=== PATIENT | female | born 1945 | race Caucasian/White ===

== ENCOUNTER 2020-08-08 15:31 | Outpatient (REF) | payer MEDICARE, MEDICAID, SELFPAY ==
[2020-08-08 15:55] LABS: MANUAL DIFF FLAG NO
[2020-08-08 15:58] LABS: Basophils Percent Auto 0.6 % (0-2); Eosinophils Percent Auto 0.9 % (0-4); Hematocrit 36.1 % (37-47); Hemoglobin 11.2 g/dl (12.0-16.0); Imm Gran Abs Auto 0.01 X10*3/uL (0.00-0.03); Imm Gran Pct Auto 0.2 % (0.0-0.4); Lymphocytes Absolute Auto 1.2 X10*3/uL (1.2-4.9); Lymphocytes Percent Auto 25.8 % (20-40); Mean Corpuscular Hemoglobin 27.8 pg (27.0-33.0); Mean Corpuscular Volume 89.6 fL (80-98); Mean Platelet Volume 10.3 fL (9.4-12.3); Monocytes Absolute Auto 0.4 X10*3/uL (0.1-1.2); Monocytes Percent Auto 8.4 % (2-11); Neutrophils Percent Auto 64.1 % (45-73); Platelet Count 227 X10*3/uL (160-400); Red Blood Count 4.03 X10*6/uL (4.20-5.50); Red Cell Distribution Width 13.6 % (11.0-16.0); White Blood Count 4.6 X10*3/uL (4.8-10.8)
[2020-08-08 16:25] LABS: Anion Gap 12 (12-20); Blood Urea Nitrogen 16 mg/dL (9-16); Carbon Dioxide 30 mmol/L (22-29); Chloride 106 mmol/L (96-108); Estimated Glomerular Filt Rate > 60; Potassium 5.1 mmol/L (3.3-5.1); Sodium 143 mmol/L (135-145)
== END 2020-08-08 15:32 | disposition home or self-care (01) ==
LOC: HO.LAB 15:31
PROVIDERS: PCP Family Medicine; Visit Provider Family Medicine
DX: I10 Essential (primary) hypertension (principal); G62.9 Polyneuropathy, unspecified
CPT/HCPCS: 36415; 80051; 82565; 84520; 85025

== ENCOUNTER 2020-10-17 08:30 | Day surgery (SDC) | payer MEDICARE, MEDICAID, SELFPAY ==
--- NOTE | 2020-10-05 14:52 | ECG_ITS ---
Test Reason : PREOP Blood Pressure : / mmHG Vent. Rate : 071 BPM Atrial Rate : 071 BPM P-R Int : 142 ms QRS Dur : 078 ms QT Int : 380 ms P-R-T Axes : 047 079 037 degrees QTc Int : 412 ms Normal sinus rhythm Nonspecific ST and T wave abnormality Borderline ECG No previous ECGs available Referred By: Gary Davila Electronically Signed By:MELODIE TRAN
--- NOTE | 2020-10-07 16:45 | CONS_ITS ---
DATE OF SERVICE: 10/17/2020 HISTORY OF PRESENT ILLNESS: This is a 75-year-old white [place] female, who has been a patient of mine for a number of years. She is non-Lithuanian speaking. She has a long history of chronic anxiety disorder and tends to be noncompliant. She has a history of glaucoma, irritable bowel syndrome, which is manifested by constipation, modestly elevated cholesterol, longstanding chronic nonspecific fatigue, colon polyps, diverticulosis, GERD although that has not been a recent problem, mild hypertension, venous insufficiency, and history of some skipped beats (PACs and PVCs). In December 2019, she probably had herpes zoster, also history of hyperventilation. She presently takes following medications, Xanax which is prescribed by her psychiatrist whom she sees intermittently and metoprolol, and no other medications at the present time except her eyedrops. She now presents via telehealth with video for preoperative consultation for cataract surgery. She does have a agricultural equipment sales manager with her named Bre, who has been helpful in terms of translation over the years with Mary. 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 As far as complaints go, she complains of chronic fatigue, which has no change. She has noted lately occasionally faint feelings from time to time, lasting only a short period of time (seconds), and some headaches. Today, she feels not too much dizziness. There has been no chest pain, shortness of breath, GERD; and the bowels have been lately okay. She has been a little unsteady on her feet for a long time, and she takes Xanax from Psychiatry, which maybe a factor. She said no rash and the neuropathy is about the same, she has refused therapy. Her legs feel numbish at times as does her arms and sometimes i wonder whether or not she might be hyperventilating.she has had no falls. I was able to get her to walk around her apartment and turning and twisting and checking for orthostatics visually without any problems. Her cataract is scheduled for October 17. She is generally a poor historian. Fatigue is generally chronic. There were no other symptoms, although she does claim her legs were swollen; however, on visualization from the camera, there does not appear to be swelling, although her right knee does appear to have a little degenerative arthritic changes by looking at it. She does not appear to be out of breath in any way, and she has mammograms overdue, but she has not done it yet and she was re-advised. Her weight is 94 pounds, which is about what she has been running, and her blood pressure was 160/74, pulse is 90. She had an EKG done within the last couple of weeks and this showed no acute changes. She had lab work done in July, which revealed lytes, BUN, creatinine, CBC, all pretty much unremarkable with no acute changes. There was no evidence of the patient having any respiratory difficulty on visualization as well as by history. IMPRESSION: 1. Hypertension. 2. Chronic fatigue. 3. Irritable bowel syndrome with constipation. 4. History of glaucoma. 5. Cataract. 6. Noncompliance. 7. Anxiety disorder. 8. History of colon polyps. 9. High cholesterol. 10. Question of hyperventilation. From medical standpoint, the patient should be relatively stable for cataract surgery. I will follow her after her cataract surgeries MD DAGMAR Cox/EZEQUIEL / [id number] MTDD
[2020-10-10 13:57] VITALS: BMI 19.0
--- NOTE | 2020-10-13 07:41 | MHC.SHP ---
Pre-Procedural Eval Section A The patient is an INPATIENT: No The History & Physical has been completed within 30 days and I have reviewed it.: Yes Section B Chief Complaint: Cataract Left Eye Allergies: Allergies Allergy/AdvReac Type Severity Reaction Status Date / Time Penicillins [PENICILLINS] Allergy Unknown UNKNOWN Unverified 10/10/20 14:02 Plan Diagnosis/Plan: Unchanged I have reviewed the history and physical and performed a pertinent physical examination on my patient. No changes have occurred unless specified.
--- NOTE | 2020-10-17 10:00 | HO.ANESPROP2 ---
[facility] Past Medical History Medical History (Updated 10/10/20 @ 14:02 by Jazmine Bhatt) Anxiety Chronic fatigue COVID-19 vaccine series completed Depression Edema leg Elevated cholesterol GERD (gastroesophageal reflux disease) Glaucoma HTN (hypertension) Irritable bowel syndrome with constipation On beta lupillo at home Poor historian Surgical History Surgical History (Updated 10/10/20 @ 13:54 by Jazmine Bhatt) Hx of colonoscopy Social History Social History Are you a primary acute care physician to a significant other at home: No Do you presently have visiting nurse or other home services: No Patient Tobacco Use Status: Never used Tobacco Use of substances other than those prescribed or required for medical reasons: No Have you been hit, kicked, punched, or otherwise hurt by someone within the past year? If so, by whom?: No Advance Directives: No Advance Directives Information Provided: No Advance Directives on File: No Recently lost weight without trying: No Eating poorly because of decreased appetite: No Patient : No Meds Allergies Allergy/AdvReac Type Severity Reaction Status Date / Time Penicillins [PENICILLINS] Allergy Unknown UNKNOWN Verified 10/17/20 10:19 Active Medications: Current Medications Generic Name Dose Route Start Last Admin Trade Name Freq PRN Reason Stop Dose Admin Lactated Ringer's 500 mls @ 50 mls/hr 10/17/20 10:00 Lr IV 10/17/20 19:59 .Q10H BRAD Povidone Iodine 1 appl 10/17/20 09:41 Povidone Iodine 5 % Ophth Soln 30 Ml Bottle EYE-LEFT PREOP PRN Pre-Op Surgical Implant Prophy Home Medications Medication Instructions Recorded Confirmed Last Taken Type alprazolam 1 tab PO TID PRN 10/10/20 10/10/20 Unknown History brimonidine 1 drp OPHTHALMIC (EYE) TID 10/10/20 10/10/20 Unknown History gabapentin 1 cap PO BEDTIME 10/10/20 10/10/20 Unknown History latanoprost 1 drp OPHTHALMIC (EYE) BEDTIME 10/10/20 10/10/20 Unknown History metoprolol succinate 1 tab PO DAILY 10/10/20 10/10/20 Unknown History Exam Exam Date and Time: October 17, 2020 1000 Height,Weight and Vital Signs: Height 4 ft 11 in Weight 42.638 kg Airway Mallampati Class: II (Missing top tooth, poor dentition) TM Dist: >3cm Neck ROM: Full Heart: rrr Lungs: cta Assessment and Plan Assessment Anesthesia Assessment: Anesthesia Plan Discussed and Chart Reviewed Final Anesthetic Review NPO: Yes ASA Class: III Final Preanesthetic Review: No Changes in Pt Med Stat and Consent Obtained/Reviewed Patient Risk: Intermediate Procedure Risk: Intermediate Anesthetic Plan Anesthetic Plan: MAC: Disposition: Standard PACU
[2020-10-17 10:10] VITALS: BP 190/92; PULSE 83; RESP 18; TEMP 36.5; O2SAT 100
[2020-10-17] MEDS: Tetracaine HCl/PF 0.5% Oph Sol 4 ML DROPS 1 DROP EYE-LEFT (10:21)
[2020-10-17] MEDS: Tropicamide 1 % Ophth Sol 3 ML BTL 1 DROP EYE-LEFT ×3 (10:23→10:35)
[2020-10-17] MEDS: Phenylephrine HCL 2.5% Oph SoL 2 ML BOTTLE 1 DROP EYE-LEFT ×3 (10:27→10:39)
[2020-10-17] MEDS: Lactated Ringers 500 ML 50 ML IV (10:39)
--- NOTE | 2020-10-17 12:03 | P.PCNO_ITS ---
Ophthalmology Procedure Procedure Date of Service: 10/17/20 Ophthalmology Viscoelastic: Healon Duet Dual Pack Pro Ophthalmology Lenses: TECNIS ZXR00 (22) Procedure Notes: PREOPERATIVE DIAGNOSIS: Decreased visual acuity left eye s econdary to cataract POSTOPERATIVE DIAGNOSIS: Same PROCEDURE: Left cataract extraction with multifocal intraocular lens insertion SURGEON: Gary Davila M.D. ANESTHESIA: Topical/MAC ESTIMATED BLOOD LOSS: None COMPLICATIONS: None After obtaining informed consent, the patient was brought to the operation room suite and placed in the supine position. After adequate sedation per anesthesia, topical drops of Tetracaine were given to the left eye. The eye was then prepped and draped in the usual sterile fashion. The operating room microscope was then positioned over the operative eye and a lid speculum placed. A paracentesis was created. Viscoelastic was then instilled into the anterior chamber. A three plane incision was then created temporally, utilizing a 2.85 mm keratome. Capsulotomy forceps were then utilized to create a circular tear capsulotomy. Hydrodissection and hydrodelineation were carried out until adequate mobilization of the nucleus occurred. Phacoemulsification was then utilized to remove the dense central nucleus followed by removal of the cortical material utilizing the automated aspiration irrigation unit. Viscoelastic was instilled into the posterior capsular bag followed by placement of a multifocal posterior chamber intraocular lens without difficulty. The residual Viscoelastic was then removed utilizing the automated IA machine. The wound was check and found to be watertight. The patient tolerated the procedure well and the lid speculum was removed. Intracameral injection of Vigamox 0.1 mL followed by a subtenon injection of Kenalog-40 0.2 mL were administered. The patient will be seen in the a.m.
[2020-10-17 12:35] VITALS: BP 183/79; PULSE 67; RESP 18; TEMP 36.8; O2SAT 100
== END 2020-10-17 12:55 | disposition home or self-care (01) ==
PROVIDERS: PCP Family Medicine; Visit Provider Ophthalmology
PROC: (CPT 66984; principal; 2020-10-17 11:20)
DX: H25.12 Age-related nuclear cataract, left eye (principal); H40.1133 Primary open-angle glaucoma, bilateral, severe stage; H40.213 Acute angle-closure glaucoma, bilateral; H52.4 Presbyopia; I10 Essential (primary) hypertension; Z83.511 Family history of glaucoma; H35.033 Hypertensive retinopathy, bilateral; R53.82 Chronic fatigue, unspecified; F41.9 Anxiety disorder, unspecified; Z79.899 Other long term (current) drug therapy; Z88.8 Allergy status to other drugs, medicaments and biological substances; Z91.14 Patient's other noncompliance with medication regimen
CPT/HCPCS: 66984; 93005; J3010; J3300; V2788

== ENCOUNTER → 2020-10-31 09:56 | Day surgery (SDC) | payer MEDICARE, MEDICAID, SELFPAY ==
[2020-10-10 14:11] VITALS: BMI 19.0
--- NOTE | 2020-10-27 07:58 | MHC.SHP ---
Pre-Procedural Eval Section A Date of Service: 10/27/20 The patient is an INPATIENT: No The History & Physical has been completed within 30 days and I have reviewed it.: Yes Section B Chief Complaint: Cataract Right Eye Allergies: Allergies Allergy/AdvReac Type Severity Reaction Status Date / Time Penicillins [PENICILLINS] Allergy Unknown UNKNOWN Verified 10/17/20 10:19 Plan Diagnosis/Plan: Unchanged I have reviewed the history and physical and performed a pertinent physical examination on my patient. No changes have occurred unless specified.
--- NOTE | 2020-10-28 10:32 | HO.ANESPROP2 ---
Documented by User: Nidhi Howard 10/28/20 10:32 HPI - Anesthesia Eval Consult details Narrative: 75yo F for Right Cataract Extraction IOL Insertion PCP cleared Left eye 10/17: Fent 50 PMFSH Past Medical History Medical History Anxiety Chronic fatigue COVID-19 vaccine series completed Depression Edema leg Elevated cholesterol GERD (gastroesophageal reflux disease) Glaucoma HTN (hypertension) Irritable bowel syndrome with constipation On beta lupillo at home Poor historian Surgical History Surgical History Hx of colonoscopy Social History Social History Are you a primary home health care respiratory therapist to a significant other at home: No Do you presently have visiting nurse or other home services: No Patient Tobacco Use Status: Never used Tobacco Use of substances other than those prescribed or required for medical reasons: No Have you been hit, kicked, punched, or otherwise hurt by someone within the past year? If so, by whom?: No Advance Directives: No Advance Directives Information Provided: No Advance Directives on File: No Meds Allergies Allergy/AdvReac Type Severity Reaction Status Date / Time Penicillins [PENICILLINS] Allergy Unknown UNKNOWN Verified 10/17/20 10:19 Home Medications Medication Instructions Recorded Confirmed Last Taken Type alprazolam 1 tab PO TID PRN 10/10/20 10/10/20 Unknown History brimonidine 1 drp OPHTHALMIC (EYE) TID 10/10/20 10/10/20 Unknown History gabapentin 1 cap PO BEDTIME 10/10/20 10/10/20 Unknown History latanoprost 1 drp OPHTHALMIC (EYE) BEDTIME 10/10/20 10/10/20 Unknown History metoprolol succinate 1 tab PO DAILY 10/10/20 10/10/20 10/31/20 History Exam Exam Date and Time: October 28, 2020 1032 Height,Weight and Vital Signs: Height 4 ft 11 in Weight 42.638 kg Assessment and Plan Assessment Anesthesia Assessment: Chart Reviewed Documented by User: Reza Aceves 10/31/20 12:41 [facility] Past Medical History Medical History Anxiety Chronic fatigue COVID-19 vaccine series completed Depression Edema leg Elevated cholesterol GERD (gastroesophageal reflux disease) Glaucoma HTN (hypertension) Irritable bowel syndrome with constipation On beta lupillo at home Poor historian Surgical History Surgical History Hx of colonoscopy Social History Social History Are you a primary home health care respiratory therapist to a significant other at home: No Do you presently have visiting nurse or other home services: No Patient Tobacco Use Status: Never used Tobacco Use of substances other than those prescribed or required for medical reasons: No Have you been hit, kicked, punched, or otherwise hurt by someone within the past year? If so, by whom?: No Advance Directives: No Advance Directives Information Provided: No Advance Directives on File: No Meds Allergies Allergy/AdvReac Type Severity Reaction Status Date / Time Penicillins [PENICILLINS] Allergy Unknown UNKNOWN Verified 10/17/20 10:19 Home Medications Medication Instructions Recorded Confirmed Last Taken Type alprazolam 1 tab PO TID PRN 10/10/20 10/10/20 Unknown History brimonidine 1 drp OPHTHALMIC (EYE) TID 10/10/20 10/10/20 Unknown History gabapentin 1 cap PO BEDTIME 10/10/20 10/10/20 Unknown History latanoprost 1 drp OPHTHALMIC (EYE) BEDTIME 10/10/20 10/10/20 Unknown History metoprolol succinate 1 tab PO DAILY 10/10/20 10/10/20 10/31/20 History Exam Airway Mallampati Class: II TM Dist: >3cm Neck ROM: Full Loose/Missing/Broken Teeth: No Heart: rrr+[id number] Lungs: cta b/l Assessment and Plan Assessment Anesthesia Assessment: Anesthesia Plan Discussed, PAT Visit and Chart Reviewed Final Anesthetic Review NPO: Yes ASA Class: III Final Preanesthetic Review: No Changes in Pt Med Stat, Meds/Allgs Chart Reviewed, Consent Obtained/Reviewed and Anes Risks/Benef Reviewed Patient Risk: Intermediate Procedure Risk: Low Assessment/Block/Sedation in SS: Assess/Block/Sedation-SS Anesthetic Plan Anesthetic Plan: MAC: and Agree w/ Assess. and Plan Disposition: Standard PACU
[2020-10-31 11:51] VITALS: BP 219/89; PULSE 73; RESP 18; TEMP 36.7; O2SAT 98
[2020-10-31] MEDS: Phenylephrine HCL 2.5% Oph SoL 2 ML BOTTLE 1 DROP EYE-RIGHT ×3 (12:17→12:19)
[2020-10-31] MEDS: Tropicamide 1 % Ophth Sol 3 ML BTL 1 DROP EYE-RIGHT ×3 (12:17→12:18)
[2020-10-31] MEDS: Lactated Ringers 500 ML 50 ML IV (12:17)
[2020-10-31] MEDS: Tetracaine HCl/PF 0.5% Oph Sol 4 ML DROPS 1 DROP EYE-RIGHT (12:17)
--- NOTE | 2020-10-31 12:22 | PC.NURSE ---
dr chambers aware of b/p denies chest pain denies sob/dizziness
[2020-10-31 12:36] VITALS: BP 188/79; PULSE 72; RESP 18; TEMP 36.6; O2SAT 97
--- NOTE | 2020-10-31 13:26 | HO.PNOPHT ---
Ophthalmology Procedure Procedure Date of Service: 10/31/20 Ophthalmology Viscoelastic: Healon Duet Dual Pack Pro Ophthalmology Lenses: TECNIS ZXR00 (22.5) Procedure Notes: PREOPERATIVE DIAGNOSIS: Decreased visual acuity right eye secondary to cataract POSTOPERATIVE DIAGNOSIS: Same PROCEDURE: Right cataract extraction with intraocular lens insertion SURGEON: Gary Davila M.D. ANESTHESIA: Topical/MAC ESTIMATED BLOOD LOSS: None COMPLICATIONS: None After obtaining informed consent, the patient was brought to the operating room suite and placed in the supine position. After adequate sedation per anesthesia, topical drops of Tetracaine were given to the right eye. The eye was then prepped and draped in the usual sterile fashion. The operating room microscope was then positioned over the operative eye and a lid speculum placed. A paracentesis was created. Viscoelastic was then instilled into the anterior chamber. A three plane incision was then created temporally, utilizing a 2.85 mm keratome. Capsulotomy forceps were then utilized to create a circular tear capsulotomy. Hydrodissection and hydrodelineation were carried out until adequate mobilization of the nucleus occurred. Phacoemulsification was then utilized to remove the dense central nucleus followed by removal of the cortical material utilizing the automated aspiration irrigation unit. Viscoelastic was instilled into the posterior capsular bag followed by placement of a posterior chamber intraocular lens without difficulty. The residual Viscoelastic was then removed utilizing the automated IA machine. The wound was checked and found to be watertight. The patient tolerated the procedure well and the lid speculum was removed. Intracameral injection of Vigamox 0.1 mL followed by a subtenon injection of Kenalog-40 0.2 mL were administered. The patient will be seen in the a.m.
[2020-10-31 14:00] VITALS: BP 189/91; PULSE 74; RESP 16; TEMP 36.1; O2SAT 97
[2020-10-31 14:14] VITALS: BP 191/89; PULSE 63; RESP 16; O2SAT 98
[2020-10-31 14:30] VITALS: BP 194/81; PULSE 67; RESP 16; O2SAT 98
== END | disposition home or self-care (01) ==
PROVIDERS: PCP Family Medicine; Visit Provider Ophthalmology
PROC: (CPT 66984; principal; 2020-10-31 13:00)
DX: H25.11 Age-related nuclear cataract, right eye (principal); H40.1133 Primary open-angle glaucoma, bilateral, severe stage; H35.033 Hypertensive retinopathy, bilateral; Z83.511 Family history of glaucoma; I10 Essential (primary) hypertension; R53.83 Other fatigue; K58.1 Irritable bowel syndrome with constipation; Z79.899 Other long term (current) drug therapy
CPT/HCPCS: 66984; J2405; J3010; J3300; V2788

== ENCOUNTER 2021-05-31 14:30 | Outpatient (REF) | payer MEDICARE, SELFPAY ==
--- NOTE | ~2021-05-31 | CT_ITS ---
EXAMINATION: CT HEAD WITHOUT CONTRAST CLINICAL INFORMATION: Other early onset cerebellar ataxia. COMPARISON: None TECHNIQUE: Contiguous axial imaging was performed from the skull base to vertex without intravenous administration of contrast. This CT examination was performed using dose optimization techniques as appropriate, variously including the following: *Automated exposure control *Adjustment of mA and/or kV according to patient size (this includes techniques or standardized protocols for targeted exams where dose is matched to indication/reason for exam; i.e. extremities or head) *Use of iterative reconstruction technique DLP: 700 mGy-cm FINDINGS: There is no evidence of acute intracranial hemorrhage or territorial infarction. No abnormal mass effect or midline shift is seen. Lyons to white matter differentiation is well preserved. No extra-axial fluid collections are identified. The ventricles are normal in size. There is no abnormal attenuation within the brain parenchyma. The osseous structures and soft tissues are normal. The mastoid air cells and visualized portions of the paranasal sinuses are well aerated. CT/CT head/brain wo con IMPRESSION: No acute intracranial process seen.
[2021-05-31 15:38] LABS: MANUAL DIFF FLAG NO
[2021-05-31 16:02] LABS: Basophils Percent Auto 0.7 % (0-2); Eosinophils Percent Auto 0.5 % (0-4); Hematocrit 34.1 % (37.0-47.0); Hemoglobin 10.4 g/dl (12.0-16.0); Imm Gran Abs Auto 0.01 X10*3/uL (0.00-0.03); Imm Gran Pct Auto 0.2 % (0.0-0.4); Lymphocytes Absolute Auto 0.8 X10*3/uL (1.2-4.9); Lymphocytes Percent Auto 17.8 % (20-40); Mean Corpuscular HGB Conc 30.5 g/dl (31.0-35.0); Mean Corpuscular Hemoglobin 27.3 pg (27.0-33.0); Mean Corpuscular Volume 89.5 fL (80.0-98.0); Mean Platelet Volume 10.6 fL (9.4-12.3); Monocytes Absolute Auto 0.4 X10*3/uL (0.1-1.2); Monocytes Percent Auto 9.6 % (2-11); Neutrophils Absolute Auto 3.1 x10*3/uL (2.0-8.3); Neutrophils Percent Auto 71.2 % (45-73); Platelet Count 213 X10*3/uL (160-400); Red Blood Count 3.81 X10*6/uL (4.20-5.50); Red Cell Distribution Width 14.7 % (11.0-16.0); White Blood Count 4.3 X10*3/uL (4.8-10.8)
[2021-05-31 17:37] LABS: Alanine Aminotransferase 10 U/L (0-31); Albumin Level 3.9 g/dL (3.5-5.0); Alkaline Phosphatase 86 U/L (39-117); Anion Gap 10 (12-20); Aspartate Amino Transferase 19 U/L (5-31); Bilirubin Total 0.3 mg/dL (0.0-1.0); Carbon Dioxide 31 mmol/L (22-29); Chloride 106 mmol/L (96-108); Estimated Glomerular Filt Rate > 60; Glucose Random 105 mg/dL (60-115); Potassium 4.3 mmol/L (3.3-5.1); Sodium 143 mmol/L (135-145); Total Protein 7.5 g/dL (6.5-8.0)
[2021-05-31 18:11] LABS: Blood Urea Nitrogen 16 mg/dL (9-16); Calcium 9.4 mg/dL (8.4-10.2)
== END 2021-05-31 14:31 | disposition home or self-care (01) ==
LOC: HO.CT 14:30
PROVIDERS: PCP Family Medicine; Visit Provider Family Medicine
DX: I10 Essential (primary) hypertension (principal); R53.83 Other fatigue; G11.10 Early-onset cerebellar ataxia, unspecified
CPT/HCPCS: 36415; 70450; 80053; 85025

== ENCOUNTER 2022-02-16 15:45 | Outpatient (REF) | payer OTHER, SELFPAY ==
[2022-02-16 16:44] LABS: Alanine Aminotransferase 6 U/L (0-31); Anion Gap 18 (12-20); Aspartate Amino Transferase 16 U/L (5-31); Blood Urea Nitrogen 22 mg/dL (9-16); Carbon Dioxide 24 mmol/L (22-29); Chloride 104 mmol/L (96-108); Estimated Glomerular Filt Rate 58; Potassium 3.9 mmol/L (3.3-5.1); Sodium 142 mmol/L (135-145)
== END 2022-02-16 15:46 | disposition home or self-care (01) ==
LOC: HO.LAB 15:45
PROVIDERS: PCP Family Medicine; Visit Provider Family Medicine
DX: I10 Essential (primary) hypertension (principal); L29.9 Pruritus, unspecified
CPT/HCPCS: 36415; 80051; 82565; 84450; 84460; 84520

== ENCOUNTER 2022-11-20 15:24 | Outpatient (REF) | payer OTHER, SELFPAY ==
[2022-11-20 18:20] LABS: Anion Gap 16 (12-20); Blood Urea Nitrogen 24 mg/dL (9-16); Carbon Dioxide 26 mmol/L (22-29); Chloride 106 mmol/L (96-108); Estimated Glomerular Filt Rate > 60; Potassium 4.9 mmol/L (3.3-5.1); Sodium 143 mmol/L (135-145)
== END 2022-11-20 15:25 | disposition home or self-care (01) ==
LOC: HO.LAB 15:24
PROVIDERS: PCP Family Medicine; Visit Provider Family Medicine
DX: I10 Essential (primary) hypertension (principal)
CPT/HCPCS: 36415; 80051; 82565; 84520

== ENCOUNTER 2023-08-16 14:46 | Outpatient (REF) | payer OTHER, SELFPAY ==
[2023-08-16 15:00] LABS: MANUAL DIFF FLAG NO
[2023-08-16 15:15] LABS: Basophils Absolute Auto 0.1 X10*3/uL (0.0-0.2); Basophils Percent Auto 0.8 % (0-2); Eosinophils Percent Auto 0.3 % (0-4); Hematocrit 37.5 % (37.0-47.0); Hemoglobin 11.7 g/dl (12.0-16.0); Imm Gran Abs Auto 0.01 X10*3/uL (0.00-0.03); Imm Gran Pct Auto 0.2 % (0.0-0.4); Mean Corpuscular HGB Conc 31.2 g/dl (31.0-35.0); Mean Corpuscular Hemoglobin 26.9 pg (27.0-33.0); Mean Corpuscular Volume 86.2 fL (80.0-98.0); Mean Platelet Volume 10.1 fL (9.4-12.3); Monocytes Absolute Auto 0.6 X10*3/uL (0.1-1.2); Monocytes Percent Auto 8.9 % (2-11); Neutrophils Absolute Auto 4.6 x10*3/uL (2.0-8.3); Neutrophils Percent Auto 73.8 % (45-73); Platelet Count 265 X10*3/uL (160-400); Red Blood Count 4.35 X10*6/uL (4.20-5.50); White Blood Count 6.2 X10*3/uL (4.8-10.8)
[2023-08-16 15:55] LABS: Alanine Aminotransferase 12 U/L (0-31); Anion Gap 12 (12-20); Aspartate Amino Transferase 23 U/L (5-31); Blood Urea Nitrogen 22 mg/dL (9-16); Carbon Dioxide 29 mmol/L (22-29); Chloride 103 mmol/L (96-108); Estimated Glomerular Filt Rate 57; Sodium 139 mmol/L (135-145)
[2023-08-16 16:10] LABS: Thyroid Stimulating Hormone 1.65 uIU/mL (0.32-4.0)
== END 2023-08-16 14:47 | disposition home or self-care (01) ==
LOC: HO.LAB 14:46
PROVIDERS: PCP Family Medicine; Visit Provider Family Medicine
DX: I10 Essential (primary) hypertension (principal); L29.9 Pruritus, unspecified
CPT/HCPCS: 36415; 80051; 82565; 84443; 84450; 84460; 84520; 85025

== ENCOUNTER 2024-06-29 15:59 | Outpatient (REF) | payer OTHER, SELFPAY ==
[2024-06-29 16:18] LABS: MANUAL DIFF FLAG NO
[2024-06-29 17:01] LABS: Basophils Percent Auto 0.7 % (0-2); Eosinophils Percent Auto 0.5 % (0-4); Hematocrit 34.3 % (37.0-47.0); Hemoglobin 10.5 g/dl (12.0-16.0); Imm Gran Abs Auto 0.01 X10*3/uL (0.00-0.03); Imm Gran Pct Auto 0.2 % (0.0-0.4); Lymphocytes Absolute Auto 0.9 X10*3/uL (1.2-4.9); Lymphocytes Percent Auto 15.1 % (20-40); Mean Corpuscular HGB Conc 30.6 g/dl (31.0-35.0); Mean Corpuscular Hemoglobin 26.9 pg (27.0-33.0); Mean Corpuscular Volume 87.9 fL (80.0-98.0); Mean Platelet Volume 10.2 fL (9.4-12.3); Monocytes Absolute Auto 0.7 X10*3/uL (0.1-1.2); Monocytes Percent Auto 11.1 % (2-11); Neutrophils Absolute Auto 4.4 x10*3/uL (2.0-8.3); Neutrophils Percent Auto 72.4 % (45-73); Platelet Count 279 X10*3/uL (160-400); Red Cell Distribution Width 14.3 % (11.0-16.0); White Blood Count 6.1 X10*3/uL (4.8-10.8)
[2024-06-29 17:34] LABS: Anion Gap 11 (12-20); Blood Urea Nitrogen 21 mg/dL (9-16); Carbon Dioxide 27 mmol/L (22-29); Chloride 109 mmol/L (96-108); Estimated Glomerular Filt Rate > 60; Sodium 142 mmol/L (135-145)
== END 2024-06-29 16:00 | disposition home or self-care (01) ==
LOC: HO.LAB 15:59
PROVIDERS: PCP Family Medicine; Visit Provider Family Medicine
DX: I10 Essential (primary) hypertension (principal); E78.00 Pure hypercholesterolemia, unspecified; R27.0 Ataxia, unspecified
CPT/HCPCS: 36415; 80051; 82565; 84520; 85025

== ENCOUNTER 2025-03-10 15:57 | Outpatient (AMB) | payer OTHER, SELFPAY ==
--- NOTE | 2025-03-10 16:01 | A.OFFPC_ITS ---
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 Allergies Penicillins (PENICILLINS) Allergy (Unknown, Verified 03/10/25 16:02) UNKNOWN Medication List - Last Reconciled 03/10/25 by Jonathan Monae MD brimonidine 0.2% 1 drp ophthalmic (eye) TID latanoprost 0.005% 1 drp ophthalmic (eye) BEDTIME metoprolol succinate ER 1 tab PO DAILY Tobacco use date assessed: 03/10/25 Fall risk assessment: No Falls in past year Last assessed Fall Risk: 03/10/25 Dental Screening Dental Screen Date: 03/10/25 Did you have a dental visit in the last 12 months?: No Did you have a dental problem in the last 6 months where you did not have access to dental care?: No HPI HPI Comments History of Present Illness Details History of Present Illness The patient is an 79-year-old female presenting for management of chronic pain and general follow-up. She lives alone in an elderly apartment and is accompanied by her personal care helper. The patient has a history of fibromyalgia and reports being in constant pain. She also had shingles approximately three years ago and continues to experience residual pain. For pain, she takes Tylenol, which provides only intermittent relief. 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 She takes metoprolol for hypertension and uses eye drops for an unspecified eye condition. She reports sometimes experiencing shortness of breath at night, which is not associated with exertion. The patient is very thin with a BMI of 19, despite having a good appetite. Her last blood work in June showed a hemoglobin of 10.5 and was otherwise stable. She has a known allergy to penicillin and denies any history of surgery, smokin g, alcohol, or marijuana use. There is no known family history of heart disease, diabetes, or cancer. Medical History: - Fibromyalgia, diagnosed over 3 years a go - Postherpetic neuralgia, secondary to s hingles 3 years ago - Hypertension - Poor circulation in feet, stable - Unspecified heart condition - Anxiety - Allergy to Penicillin Surgical History: - No history of surgeries reported. Medications: - Metoprolol for hypertension - Unspecified eye drops - Tylenol as needed for pain - Unspecified medication for anxiety or heart condition Family History: - Denies family history of heart disease , diabetes, or cancer. Diagnostic Results: - Labs (from June): Results were noted to be fine and stable. - Hemoglobin: 10.5 g/dL. - Other: BMI is 19. Social History - Housing: Lives alone in an elderly apa rtment with assisted living services. - Social Support: Has a personal care he lper. - Substance Use: Denies use of tobacco, alcohol, or marijuana. - Functional Status: Activity is limited ; does not use stairs. - Nutritional Intake: Reports having a g ood appetite but is noted to be very thin. Health Maintenance - Vaccinations: Recommended that the pat ient receive the COVID-19 and influenza shots. - Follow-up: Advised to schedule a follo w-up appointment in 3 months to reassess chronic pain, monitor medication efficacy, and repeat blood work. - Nutrition: Advised to supplement her d iet with protein shakes like Ensure to address her underweight status and low protein levels. Patient was informed and verbally consented to the use of an ambient scribe for clinic note documentation during this visit. Vital signs reviewed. Comprehensive history, review of systems, and physical exam completed. Medications, allergies, and problem list reviewed and updated. Counseling provided on nutrition, regular exercise, sleep hygiene, and moderation of alcohol use. Discussed age-appropriate screenings (mammogram, colonoscopy, Pap, bone density) and immunizations (flu, COVID, shingles, Tdap). Screened for depression, fall risk, and home safety; no current concerns. Discussed stress management, dental and vision care, and importance of ongoing preventive follow-up. Routine labs ordered for metabolic and lipid screening. Patient educated on healthy lifestyle and agrees with the plan. [facility] Medical History (Updated 03/10/25 @ 16:25 by Jonathan Monae MD) Low weight Anemia Fibromyalgia COVID-19 vaccine series completed Glaucoma Irritable bowel syndrome with constipation Chronic fatigue Edema leg GERD (gastroesophageal reflux disease) Depression Anxiety Poor historian On beta lupillo at home Elevated cholesterol HTN (hypertension) Surgical History Hx of colonoscopy Family History (Updated 03/10/25 @ 16:12 by Valarie Ro MA) Mother No problems noted. Father No problems noted. Social History Housing: House Are you a primary primary care physician to a significant other at home: No Do you presently have visiting nurse or other home services: No Patient Tobacco Use Status: Never used Tobacco e-Cigarette/Vaping Use: Never Used service: No Current occupational status: retired Cognitive needs: Yes ([employer]) Hearing needs: No Vision needs: No Questionnaire PHQ-9 Over the last 2 weeks, how often have you been bothered by any of the following problems? 1. Little interest or pleasure in doing things: not at all 2. Feeling down, depressed, or hopeless: several days 3. Trouble falling or staying asleep, or sleeping too much: several days 4. Feeling tired or having little energy: several days 5. Poor appetite or overeating: not at all 6. Feeling bad about yourself - or that you are a failure or have let yourself or your family down: not at all 7. Trouble concentrating on things, such as reading the newspaper or watching television: not at all 8. Moving or speaking so slowly that other people could have noticed. Or the opposite - being so fidgety or restless that you have been moving around a lot more than usual: not at all 9. Thoughts that you would be better off or of hurting yourself in some way: not at all Total score: 3 Source: Developed by Drs. Linden Awad, Mirian Villalobos, Neel Gutierrez and colleagues, with an educational luis from [employer]. Thrive Questionnaire Date Thrive assessed: 03/10/25 Within the past 12 months, did the food you bought not last and you didn't have the money to get more?: Never true Within the past 12 months, did you worry whether your food would run out before you got money to buy more?: Never true Do you have trouble paying for medicines?: No Do you have trouble getting transportation to medical appointments?: No Do you have trouble paying your heating and electricity bill?: No Do you have trouble taking care of your child, family member or friend?: No Do you have trouble with day-to-day activities such as bathing, preparing meals, shopping, managing finances, etc.?: No Are you currently unemployed and looking for a job?: No Are you interested in more education?: No THRIVE Score: 0 AUDIT C Alcohol Use Questionnaire (AUDIT-C) 1. How often do you have a drink containing alcohol?: Never 3. How often do you have six or more drinks on one occasion?: Never Total Score: 0 ARSLAN-7 AMB Questionnaire ARSLAN-7 Date ARSLAN - 7 assessed: 03/10/25 Feeling nervous, anxious, or on edge: 0 = Not at all Not being able to stop or control worryin = Not at all Worrying too much about different things: 0 = Not at all Trouble relaxin = Not at all Being so restless that it is hard to sit still: 0 = Not at all Becoming easily annoyed or irritable: 0 = Not at all Feeling afraid as if something awful might happen: 0 = Not at all Total ARSLAN-7 score (0-4 normal; 5-9 mild; 10-14 moderate; 15-21 severe): 0 Source: Developed by Drs. Linden Awad, Mirian Villalobos, Neel Gutierrez and colleagues, with an educational luis from [employer]. Review of Systems Narrative Review of Systems - General: Reports constant, generalized pain. - Respiratory: Reports occasional nocturnal dyspnea not associated with exertion. - Cardiovascular: Denies chest pain. - Gastrointestinal: Denies nausea or vomiting. - Allergic/Immunologic: Reports an allergy to penicillin. All systems reviewed & are unremarkable except as reviewed in HPI and above Physical exam (Primary Care) Vital Signs: Last Vital Signs Temp 97.2 F 03/10/25 16:04 Pulse 67 03/10/25 16:04 BP 120/70 03/10/25 16:04 Pulse Ox 98 03/10/25 16:04 Oxygen Delivery Method Room Air 03/10/25 16:04 BMI result Body Mass Index 19.0 Tobacco/Smoking Status: Tobacco use Status Tobacco use date assessed 03/10/25 03/10/25 16:04 Patient Tobacco Use Status Never used Tobacco 03/10/25 16:04 e-Cigarette/Vaping Use Never Used 03/10/25 16:04 PHQ-9: PHQ-9 Score PHQ-9: Total score 3 03/10/25 16:23 Thrive Assessment: Date of Thrive Assessment Date Thrive assessed 03/10/25 03/10/25 16:04 Narrative Physical Exam General: +Alert and oriented, Well nourished, No acute distress, Very underweight, [place] is 19. Eye: Pupils are equal, round and reactive to light, Intact accommodation, Extraocular movements are intact, Normal conjunctiva, Vision unchanged, Takes eye drops. HENT: Normocephalic, Atraumatic, Tympanic membranes are clear, Normal hearing, Oral mucosa is moist, No pharyngeal erythema, Ear canals patent. Respiratory: Lungs CTA bilaterally, No wheeze, Respirations are non-labored, Shortness of breath at night. Cardiovascular: Regular rate, Regular rhythm, S1 auscultated, S2 auscultated, No murmur, Good pulses equal in all extremities, Normal peripheral perfusion, No edema, Takes metoprolol, Blood pressure is very good. Gastrointestinal: Soft, Non-tender, Non-distended, Normal bowel sounds, No organomegaly, No pain, Good appetite. Musculoskeletal: Normal range of motion, Normal strength, No tenderness, No deformity, Normal gait, Swelling in legs, Pain due to fibromyalgia. Integumentary: Warm, Dry, [place], Intact, Swelling in legs. Neurologic: Alert, Oriented, Normal sensory, Normal motor function, No focal defects, Cranial Nerves II-XII are grossly intact, Normal deep tendon reflexes. Psychiatric: Cooperative, Appropriate mood & affect, Normal judgment, Takes duloxetine for fibromyalgia and mood. Coding Level of Care Code New Pt Level 4 (21693) Diagnoses Hypertension, unspecified type I10 Hypertension type: unspecified Glaucoma, unspecified glaucoma type, unspecified laterality H40.9 Glaucoma type: unspecified Laterality: unspecified laterality Fibromyalgia M79.7 Anemia, unspecified type D64.9 Anemia type: unspecified type Low weight R63.6 Assessment & Plan Assessment & Plan (1) HTN (hypertension): Comment: - The patient's blood pressure is well-controlled on her current medication. - She will continue taking metoprolol. Code(s): I10 - Essential (primary) hypertension Category: Medical Qualifiers: Hypertension type: unspecified Qualified Code(s): I10 - Essential (primary) hypertension (2) Glaucoma: Comment: - Continue Eye Drops Code(s): H40.9 - Unspecified glaucoma Category: Medical Qualifiers: Glaucoma type: unspecified Laterality: unspecified laterality Qualified Code(s): H40.9 - Unspecified glaucoma (3) Fibromyalgia: Comment: - The patient experiences constant pain, for which Tylenol provides inadequate relief. - Plan is to start duloxetine once daily, a safer option for her age, to manage the pain. - Will follow up in 3 months to assess efficacy, with the option to titrate the dose up to 120 mg if needed. - Advised to avoid sedatives and sleeping pills. Code(s): M79.7 - Fibromyalgia Category: Medical (4) Anemia: Comment: - Labs from June showed a hemoglobin of 10.5. - Will repeat blood work at the 3-month follow-up appointment. Code(s): D64.9 - Anemia, unspecified Category: Medical Qualifiers: Anemia type: unspecified type Qualified Code(s): D64.9 - Anemia, unspecified (5) Low weight: Comment: - The patient has a BMI of 19 and bilateral leg swelling, which may be related to hypoalbuminemia. - Advised to increase nutritional intake with protein shakes, such as Ensure, to help with weight gain and edema. Code(s): R63.6 - Underweight Category: Medical Plan: Health Maintenance: - Vaccinations: Recommended that the patient receive the COVID-19 and influenza shots. - Follow-up: Advised to schedule a follow-up appointment in 3 months to reassess chronic pain, monitor medication efficacy, and repeat blood work. - Nutrition: Advised to supplement her diet with protein shakes like Ensure to address her underweight status and low protein levels. Patient was informed and verbally consented to the use of an ambient scribe for clinic note documentation during this visit. Plan I discussed with the patient and her caregiver that her chronic pain is likely due to fibromyalgia and postherpetic neuralgia. I explained the plan to start duloxetine, highlighting it as a safer medication choice given her age, and noted that we can increase the dose if needed. I advised against the use of sedatives or sleeping pills. I also explained that the bump on her back is an age-related spinal curve. I recommended protein shakes to address her low weight and explained that this could also help with her leg swelling. I confirmed that her blood pressure is well-managed and that her prior labs were stable, but we will repeat them in three months. Finally, I advised her to get her COVID and flu vaccinations and to schedule a follow-up visit in three months. Medications: New duloxetine 30 mg PO DAILY 90 caps 0RF Patient Instructions: - Take one capsule of the new medication, duloxetine, every day for your pain. - The prescription for duloxetine has been sent to [facility]. - Continue taking your metoprolol for blood pressure as you have been. - Drink protein shakes like Ensure to help you gain weight and to help with the swelling in your legs. - Please get your COVID shot and flu shot. - Please schedule an appointment to come back to the clinic in three months. - If you have any problems or questions, please call our office.
[2025-03-10 16:04] VITALS: BP 120/70; PULSE 67; TEMP 36.2; O2SAT 98; BMI 19.0
--- OUTSIDE RECORDS SUMMARY | 2025-03-11 04:34 | XMS_ITS | Patient Health Record ---
Author Organization [facility] Address [address] [place] [address] Care Team Providers Care Events Traffic Controller Name Role Phone Linden Billy Unavailable [phone] Reason For Referral No Information Plan Of Treatment No Information
--- OUTSIDE RECORDS SUMMARY | 2025-03-11 04:35 | XMS_ITS ---
Author Organization Unknown ENCOUNTERS Encounter Performer Location Date Diagnosis Diagnosis Status Pre Admit [address] [id number] [address] [id number] [facility] Pre Admit [address] [address] [id number] [address] [id number] [facility] *Note: Encounters from your own facility or health system may be excluded. Allergies, Adverse Reactions, Alerts Allergen Type Severity Identification Date Medications Name Date Quantity Days Supplied GPI Number
== END 2025-03-10 16:23 | disposition home or self-care (01) ==
LOC: HO.HMCHD 15:58
PROVIDERS: PCP Physician Assistant; Visit Provider Student in an Organized Health Care Education/Training Program
DX: I10 Essential (primary) hypertension (principal); H40.9 Unspecified glaucoma; M79.7 Fibromyalgia; D64.9 Anemia, unspecified; R63.6 Underweight

== ENCOUNTER → 2025-03-10 15:57 | Outpatient (BNVA) | payer OTHER, SELFPAY | PROVIDERS: PCP Physician Assistant; Visit Provider Student in an Organized Health Care Education/Training Program | DX: I10 Essential (primary) hypertension (principal); H40.9 Unspecified glaucoma; M79.7 Fibromyalgia; D64.9 Anemia, unspecified; R63.6 Underweight; B02.29 Other postherpetic nervous system involvement; Z13.31 Encounter for screening for depression; Z13.39 Encounter for screening examination for other mental health and behavioral disorders | CPT/HCPCS: 96127; 99202 ==